=== PATIENT | male | born 1945 ===

== ENCOUNTER 2016-10-27 06:15 | Day surgery (SDC) | payer MEDICARE, OTHER ==
[2016-10-15 08:32] VITALS: BMI 25.8
[2016-10-27 07:02] VITALS: TEMP 98
[2016-10-27] MEDS ORDERED: cefTRIAXone (Rocephin) 1 gm Inj ONE (07:47)
[2016-10-27] MEDS ORDERED: Iohexol 240 (50 ml) ONE (07:47)
[2016-10-27] MEDS ORDERED: Lidocaine 2% Inj (20ml) ONE (07:52)
[2016-10-27] MEDS ORDERED: Propofol 10 mg/ml Inj (20 ML) ONE (07:52)
[2016-10-27] MEDS ORDERED: Midazolam 2 MG/2 ML VIAL ONE (08:06)
[2016-10-27] MEDS ORDERED: Morphine 2 mg/ml ISec IVP PRN (08:46)
[2016-10-27] MEDS ORDERED: Lactated Ringer's 1,000 ML IV SCH (08:46)
[2016-10-27 09:39] VITALS: RESP 18
[2016-10-27 09:40] VITALS: BP 125/56; PULSE 81; O2SAT 98
--- NOTE | 2016-10-27 10:37 | OP ---
PROCEDURE DATE: 10/27/2016 PREOPERATIVE DIAGNOSIS: Hematuria. POSTOPERATIVE DIAGNOSIS: Hematuria. PROCEDURE: Cystoscopy, bladder biopsy, and bilateral retrograde ureteropyelogram. SURGEON: Jonatan Cuadra MD TYPE OF ANESTHESIA: IV general. DESCRIPTION OF PROCEDURE: After IV general was given and after the patient was given 1 g of Rocephin IV, the patient was prepped and draped in the usual manner. A 22-Lebanese cystourethroscope was introduced under direct vision. Anterior urethra was normal. The prostatic urethra was opened from the verumontanum into the bladder. The bladder itself showed no tumors, foreign bodies, or stones. Orifices with normal in appearance with clear efflux. There was some prominent vessels in the mucosa that did not appear suspicious at all, but it represented the area that was biopsied and was fulgurated on the posterior wall with no evidence of any bleeding. Attention was then directed to the orifices, where a cone-tipped catheter was placed against the right ureteral orifice. Ureteropyelogram was carried, which appeared normal with no filling defects. On the left side, I had to use an open-ended catheter with an angled Glidewire to be able to get up the orifice. The cone would not go into the orifice directly due its location and through the 5-Lebanese open-ended catheter, a left ureteropyelogram was carried out, which also appeared completely normal. The films will be sent for outside interpretation as well. Upon initial introduction of the cystoscope, the urine was obtained for cytology. Prior to draining the bladder, the area that was biopsied was reinspected with no bleeding whatsoever. The bladder was drained. The cystoscope was removed. The patient was awakened and brought to the recovery room in good condition. Jonatan Cuadra MD
--- NOTE | 2016-10-27 11:28 | RAD ---
PROCEDURE: Fluoroscopy up to 1 hour HISTORY: CYSTO COMPARISON: TECHNIQUE: Fluoroscopy was provided in the operating room. Seven images were submitted FINDINGS: There is opacification of both renal collecting systems and ureters. There are no filling defects identified. IMPRESSION: As above
== END 2016-10-27 10:02 | disposition home or self-care (01) ==
LOC: SDS 06:15
PROVIDERS: ATTEND Urology
DX: N30.21 Other chronic cystitis with hematuria (principal); Z21 Asymptomatic human immunodeficiency virus [HIV] infection status; Z72.0 Tobacco use; Z98.890 Other specified postprocedural states; Z79.899 Other long term (current) drug therapy
CPT/HCPCS: 52005; 52204; 76000; 88108; 88305; C1758; C1769; J0696; J2250; J2270; J2704; J3010; J7120 ×2; Q9966